=== PATIENT | male | born 1955 | race Caucasian/White ===

== ENCOUNTER 2025-04-17 11:17 | Inpatient (IN) | payer OTHER ==
[2025-04-17] VITALS (7 sets, daily range): BP systolic 119–147; BP diastolic 64–77; PULSE 75–86; RESP 14–18; TEMP 97.9–98; O2SAT 95–100
[~2025-04-17] VITALS: Ht 177.8 cm; Wt 79.0 kg
[2025-04-17 11:43] LABS: Hematocrit 45.7 % (41.0-53.0); Hemoglobin 15.9 g/dL (13.5-17.5); Mean Corpuscular Hemoglobin 32.3 pg (28.0-32.0); Mean Corpuscular Volume 92.4 fL (80.0-100.0); Nucleated Red Blood Cells % 0.1 %
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
[2025-04-17 11:53] LABS: Chloride 100 mmol/L (98-107); Potassium 4.2 mmol/L (3.5-5.1); Sodium 137 mmol/L (136-145)
[2025-04-17 11:54] LABS: Anion Gap 13 (5-15); Carbon Dioxide 24 mmol/L (20-31)
[2025-04-17 11:55] LABS: Calcium 9.5 mg/dL (8.7-10.4)
[2025-04-17 11:59] LABS: Glucose 101 mg/dL (74-106)
[2025-04-17 12:00] LABS: BUN/Creatinine Ratio 18.2 (10.0-20.0); Blood Urea Nitrogen 16 mg/dL (9-23)
--- NOTE | 2025-04-17 12:28 | DVH ---
CHEST RADIOGRAPH Indication: CHEST PAIN Technique: Single frontal view of the chest was obtained Comparison: None FINDINGS: Lines and Tubes: None Lungs: No focal consolidation. Pleura: No effusion. No pneumothorax. Cardiomediastinal contours: Unremarkable Bones: No acute osseous abnormality. IMPRESSION: No acute cardiopulmonary disease.
[2025-04-17] MEDS: ONDANSETRON HCL 4 MG/2 ML VIAL IV ONE (15:12)
[2025-04-17] MEDS: MORPHINE SULFATE 4 MG/ML SYR/VIAL IV ONE (15:12)
[2025-04-17] MEDS: NITROGLYCERIN 0.4 MG SL TAB SL ONE (15:12)
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
[2025-04-17] MEDS ORDERED: ONDANSETRON HCL 4 MG/2 ML VIAL IV PRN (15:30)
[2025-04-17] MEDS ORDERED: MORPHINE SULFATE INJ 2 MG/ml SYRG IV PRN ×2 (15:30)
[2025-04-17] MEDS ORDERED: NITROGLYCERIN 0.4 MG SL TAB SL PRN (15:30)
[2025-04-17] MEDS ORDERED: ACETAMINOPHEN 325 MG TAB PO PRN (15:30)
[2025-04-17 15:51] LABS: Alanine Aminotransferase 32.0 U/L (7-40); Albumin 4.6 g/dL (3.2-4.8); Alkaline Phosphatase 84.0 U/L (46-116); Total Protein 7.7 g/dL (5.7-8.2)
[2025-04-17 15:52] LABS: Triglycerides 133.0 mg/dL (< 150)
[2025-04-17 15:53] LABS: Magnesium 2.1 mg/dL (1.6-2.6)
[2025-04-17 15:54] LABS: INR 0.99 (0.9-1.15); Partial Thromboplastin Time 26.7 SEC (24.5-34.5); Prothrombin Time 10.5 sec (9.3-11.8)
[2025-04-17 15:54] LABS: Bilirubin, Direct 0.4 mg/dL (<0.3); Bilirubin, Total 1.5 mg/dL (0.2-1.0); Cholesterol 192.0 mg/dL (< 200)
[2025-04-17 15:55] LABS: HDL Cholesterol 61.0 mg/dL (40-59)
[2025-04-17 16:25] LABS: Lipase 24.0 U/L (12-53)
[2025-04-17] MEDS: LEVALBUTEROL HCL 1.25 MG/3 ML NEB NEB SCH (18:32)
[2025-04-17] MEDS: IPRATROPIUM BROM 0.5 MG/2.5ML INH SOL NEB SCH (18:32)
[2025-04-17] MEDS: SODIUM PHOSPHATES 20 MEQ in SODIUM CHL 0.9% 100 ML IV ONE (18:39)
[2025-04-17 21:42] LABS: Amphetamine Screen, Urine Neg (NEGATIVE); Barbiturate Scree,Urine Neg (NEGATIVE); Benzodiazephine Screen, Urine Neg (NEGATIVE); Cannabinoid Screen, Urine Neg (NEGATIVE); Cocaine Screen, Urine Neg (NEGATIVE); Opiate Scree,Urine Neg (NEGATIVE); Phencyclidine Screen, Urine Neg (NEGATIVE); Urine Protein, UAD Negative (Negative)
[2025-04-17] MEDS ORDERED: ATORVASTATIN 20 MG TAB PO SCH (22:00)
[2025-04-18] VITALS (7 sets, daily range): BP systolic 120–122; BP diastolic 63–72; PULSE 77–85; RESP 16–18; TEMP 97.4–98.5; O2SAT 95–100
[2025-04-18] MEDS ORDERED: MORPHINE SULFATE 4 MG/ML SYR/VIAL IV PRN (01:00)
[2025-04-18 05:33] LABS: Hematocrit 42.4 % (41.0-53.0); Hemoglobin 14.9 g/dL (13.5-17.5); Mean Corpuscular Hemoglobin 32.6 pg (28.0-32.0); Mean Corpuscular Volume 92.7 fL (80.0-100.0); Nucleated Red Blood Cells % 0.0 %
[2025-04-18] MEDS: PANTOPRAZOLE 40 MG TAB PO SCH (06:00)
[2025-04-18 06:54] LABS: Alanine Aminotransferase 21 U/L (7-40); Albumin 4.2 g/dL (3.2-4.8); Alkaline Phosphatase 65 U/L (46-116); Anion Gap 11 (5-15); BUN/Creatinine Ratio 14.1 (10.0-20.0); Blood Urea Nitrogen 13 mg/dL (9-23); Calcium 9.1 mg/dL (8.7-10.4); Carbon Dioxide 26 mmol/L (20-31); Chloride 102 mmol/L (98-107); Potassium 4.4 mmol/L (3.5-5.1); Sodium 139 mmol/L (136-145); Total Protein 7.1 g/dL (5.7-8.2)
[2025-04-18 06:58] LABS: Bilirubin, Total 1.7 mg/dL (0.2-1.0); Glucose 121 mg/dL (74-106)
[2025-04-18] MEDS: ENOXAPARIN SOD 40 MG/0.4 ML SYRINGE SC SCH (10:01)
--- NOTE | 2025-04-18 10:51 | ECG ---
[facility] Test Date: 2025-04-17 Test Time: 12:31:19 Pat Name: ORLIN ALBARADO Department: ED Room: [address] [place] [address] Gender: M Blueprinting Machine Operator: AUNDREA : 1955 Requested By: DANE HUNTLEY Order Number: [id number] Reading MD: Jonathan Wren Measurements Intervals [place] Rate: 70 P: 65 MS: 162 QRS: -53 QRSD: 100 T: 21 QT: 415 QTc: 448 Interpretive Statements Sinus rhythm Left atrial enlargement Left anterior fascicular block RSR' in V1 or V2, right VCD or RVH Left ventricular hypertrophy Borderline ST elevation, lateral leads Electronically Signed On 04-18-2025 17:47:48 PST by Jonathan Wren Please click the below link to view image of tracing.
--- NOTE | 2025-04-18 10:51 | ECG ---
[facility] Test Date: 2025-04-17 Test Time: 11:22:57 Pat Name: ORLIN ALBARADO Department: ED Room: [address] [place] [address] Gender: M Baker Second: MAC : 1955 Requested By: DANE HUNTLEY Order Number: [id number] Reading MD: Jonathan Wren Measurements Intervals [place] Rate: 60 P: 64 WI: 162 QRS: -53 QRSD: 102 T: 33 QT: 442 QTc: 442 Interpretive Statements Sinus rhythm Left atrial enlargement Left anterior fascicular block RSR' in V1 or V2, right VCD or RVH ST elevation, consider anterior injury Electronically Signed On 04-18-2025 17:47:28 PST by Jonathan Wren Please click the below link to view image of tracing.
== END 2025-04-18 12:05 | disposition left against medical advice (07) | DRG 307 ==
LOC: EDBD 11:17 → ER 11:17 → OVERFLOW 15:16
PROVIDERS: ADMIT Nurse Practitioner Acute Care; ATTEND Nurse Practitioner Acute Care
DX: I38 Endocarditis, valve unspecified (principal); I24.9 Acute ischemic heart disease, unspecified; T78.2XXA Anaphylactic shock, unspecified, initial encounter; E83.39 Other disorders of phosphorus metabolism; R65.10 Systemic inflammatory response syndrome (SIRS) of non-infectious origin without acute organ dysfunction; E80.6 Other disorders of bilirubin metabolism; Z53.29 Procedure and treatment not carried out because of patient's decision for other reasons; E78.5 Hyperlipidemia, unspecified; K21.9 Gastro-esophageal reflux disease without esophagitis; R73.03 Prediabetes; Z80.3 Family history of malignant neoplasm of breast; Z80.42 Family history of malignant neoplasm of prostate; Z82.49 Family history of ischemic heart disease and other diseases of the circulatory system; Y84.8 Other medical procedures as the cause of abnormal reaction of the patient, or of later complication, without mention of misadventure at the time of the procedure; Y92.89 Other specified places as the place of occurrence of the external cause
CPT/HCPCS: 36415; 71045; 80048; 80053; 80061; 80076; 80307; 81001; 82306; 82607; 83036; 83605; 83690; 83735; 84100; 84443; 84484; 85025; 85379; 85610; 85652; 85730; 86141; 93005; 94640; 99291; 99292; G0378